=== PATIENT | male | born 1980 | race African-American/Black ===

== ENCOUNTER 2017-04-07 10:23 | Emergency (ER) | payer SELFPAY ==
[~2017-04-07] VITALS: Ht 182.9 cm; Wt 115.0 kg
[~2017-04-07 10:23] MED LIST: AMOXICILLIN500 MG OR; BACTRIM DS1 TAB PO; BENADRYL 50MG C50 MG OR; BENTYL20 MG OR; CEPHALEXIN500 MG PO; LISINOP/HCTZ1 TAB PO; LORTAB 5-325 MG1 TAB PO; NAPROSYN500 MG PO; NO MEDS; PROMETHAZINE25 M1 RE
[2017-04-07 10:43] VITALS: BP 166/99
[2017-04-07 12:20] LABS: HEMATOCRIT 47.8 % (39.0-50.0); HEMOGLOBIN 15.8 g/dl (14.0-18.0); IMMATURE GRANULOCYTES 0.4 % (0.0-1.0); MEAN CELL VOLUME 91.6 fL CALC (80.0-100.0); MEAN CORPUSCULAR HGB 30.3 pG CALC (26.0-32.0); MEAN CORPUSCULAR HGB CONC 33.1 g/L CALC (32.0-36.0); NEUT# 8.17 thou/uL (1.82-7.42); RED BLOOD COUNT 5.22 mill/uL (4.70-6.10); RED CELL DISTRI WIDTH 14.6 % (11.5-15.5)
[2017-04-07 12:26] LABS: ALBUMIN 4.4 g/dL (3.2-5.0); ALKALINE PHOSPHATASE 108 u/l (38-126); ANION GAP 15 (6-22 (CALC)); BUN 14 mg/dL (9-20); BUN/CREATININE RATIO 19 (12-20 (CALC)); CARBON DIOXIDE 28 mmol/l (22-30); CHLORIDE 104 mmol/l (95-108); CREATININE 0.8 mg/dL (0.7-1.3); GFR > 60 ML/MIN (>=60 (CALC)); GFR FOR AFR.AMER. > 60 ML/MIN (>=60 (CALC)); GLUCOSE 89 mg/dL (75-110); POTASSIUM 3.8 mmol/l (3.5-5.1); SGOT/AST 20 u/l (17-59); SGPT/ALT 37 u/l (21-72); SODIUM 144 mmol/l (137-146); TOTAL PROTEIN 7.8 g/dL (6.3-8.2)
[2017-04-07] MEDS ORDERED: LORTAB 5-325 MG1 TAB PO (13:34)
[2017-04-07] MEDS ORDERED: BACTRIM DS1 TAB PO (13:34)
[2017-04-08] MEDS ORDERED: BACTRIM DS1 TAB PO (12:36)
== END 2017-04-07 13:59 | disposition home or self-care (01) | DRG 603 ==
LOC: ED 10:23
PROVIDERS: Emergency Medicine
PROC: 0H94XZZ Drainage of Neck Skin, External Approach (ICD-10-PCS; principal; 2017-04-07)
DX: L02.11 Cutaneous abscess of neck (principal)
CPT/HCPCS: Q9967

== ENCOUNTER 2017-04-08 11:38 | Emergency (ER) | payer SELFPAY ==
[~2017-04-08] VITALS: Ht 182.9 cm; Wt 125.0 kg
[2017-04-08] MEDS ORDERED: BACTRIM DS1 TAB PO (12:36)
[2017-04-08 12:50] VITALS: BP 130/88
== END 2017-04-08 12:50 | disposition home or self-care (01) | DRG 603 ==
LOC: ED 11:38
DX: L02.11 Cutaneous abscess of neck (principal); I10 Essential (primary) hypertension; F17.290 Nicotine dependence, other tobacco product, uncomplicated

== ENCOUNTER 2017-04-10 11:46 | Emergency (ER) | payer SELFPAY ==
[~2017-04-10] VITALS: Ht 182.9 cm; Wt 127.0 kg
[2017-04-10 12:41] VITALS: BP 142/81
== END 2017-04-10 12:43 | disposition home or self-care (01) | DRG 951 ==
LOC: ED 11:46
DX: Z48.01 Encounter for change or removal of surgical wound dressing (principal)

== ENCOUNTER 2017-04-13 11:26 | Emergency (ER) | payer SELFPAY ==
[~2017-04-13] VITALS: Ht 182.9 cm; Wt 100.0 kg
[2017-04-13 12:22] VITALS: BP 138/77
== END 2017-04-13 12:25 | disposition home or self-care (01) | DRG 951 ==
LOC: ED 11:26
DX: Z48.01 Encounter for change or removal of surgical wound dressing (principal)

== ENCOUNTER 2017-09-13 19:45 | Emergency (ER) | payer SELFPAY ==
[~2017-09-13] VITALS: Ht 182.9 cm; Wt 128.4 kg
[2017-09-13] MEDS ORDERED: PERCOCET 5/325M1 TAB PO (20:52)
[2017-09-13] MEDS ORDERED: KEFLEX500 MG PO (20:52)
[2017-09-13 21:06] VITALS: BP 138/80
== END 2017-09-13 21:20 | disposition left against medical advice (07) | DRG 603 ==
LOC: ED 19:45
DX: L02.11 Cutaneous abscess of neck (principal); Z91.19 Patient's noncompliance with other medical treatment and regimen

== ENCOUNTER 2017-09-17 09:22 | Emergency (ER) | payer SELFPAY ==
[~2017-09-17] VITALS: Ht 182.9 cm; Wt 120.0 kg
[~2017-09-17 09:22] MED LIST changes: +KEFLEX500 MG PO; +PERCOCET 5/325M1 TAB PO
[2017-09-17 10:30] VITALS: BP 158/80
[2017-09-17] MEDS ORDERED: BACTRIM DS1 TAB PO (10:30)
== END 2017-09-17 10:30 | disposition home or self-care (01) | DRG 603 ==
LOC: ED 09:22
PROC: 0H94XZZ Drainage of Neck Skin, External Approach (ICD-10-PCS; principal; 2017-09-17)
DX: L02.11 Cutaneous abscess of neck (principal)

== ENCOUNTER 2017-09-19 13:49 | Emergency (ER) | payer SELFPAY ==
[~2017-09-19] VITALS: Ht 182.9 cm; Wt 100.0 kg
[2017-09-19] MEDS ORDERED: LISINOPRIL20 MG PO (14:10)
[2017-09-19 14:20] VITALS: BP 177/95
== END 2017-09-19 14:20 | disposition home or self-care (01) | DRG 951 ==
LOC: ED 13:49
DX: Z48.01 Encounter for change or removal of surgical wound dressing (principal); F17.210 Nicotine dependence, cigarettes, uncomplicated; I10 Essential (primary) hypertension

== ENCOUNTER 2017-09-22 23:51 | Emergency (ER) | payer SELFPAY ==
[~2017-09-22] VITALS: Ht 182.9 cm; Wt 128.0 kg
[~2017-09-22 23:51] MED LIST changes: +LISINOPRIL20 MG PO
[2017-09-23] MEDS ORDERED: LORTAB 1010 MG PO (00:30)
[2017-09-23] MEDS ORDERED: BACTRIM DS1 TAB PO (00:30)
[2017-09-23 00:36] VITALS: BP 146/100
== END 2017-09-23 00:41 | disposition home or self-care (01) | DRG 951 ==
LOC: ED 23:51
DX: Z48.01 Encounter for change or removal of surgical wound dressing (principal)

== ENCOUNTER 2017-09-27 14:35 | Emergency (ER) | payer SELFPAY ==
[~2017-09-27] VITALS: Ht 182.9 cm; Wt 128.0 kg
[~2017-09-27 14:35] MED LIST changes: +LORTAB 1010 MG PO
[2017-09-27 15:30] VITALS: BP 134/87
== END 2017-09-27 15:34 | disposition home or self-care (01) | DRG 951 ==
LOC: ED 14:35
DX: Z48.01 Encounter for change or removal of surgical wound dressing (principal); F17.210 Nicotine dependence, cigarettes, uncomplicated; I10 Essential (primary) hypertension; Z91.19 Patient's noncompliance with other medical treatment and regimen

== ENCOUNTER 2017-10-01 23:08 | Emergency (ER) | payer SELFPAY ==
[~2017-10-01] VITALS: Ht 182.9 cm; Wt 128.0 kg
[2017-10-02 00:32] VITALS: BP 140/92
== END 2017-10-02 00:37 | disposition home or self-care (01) | DRG 951 ==
LOC: ED 23:08
DX: Z48.01 Encounter for change or removal of surgical wound dressing (principal)

== ENCOUNTER 2017-11-26 14:49 | Emergency (ER) | payer SELFPAY ==
[~2017-11-26] VITALS: Ht 182.9 cm; Wt 100.0 kg
[2017-11-26] MEDS ORDERED: BACTRIM DS1 TAB PO ×2 (15:12→15:42)
[2017-11-26] MEDS ORDERED: CEPHALEXIN500 M1 PO ×2 (15:12→15:42)
[2017-11-26 15:47] VITALS: BP 139/99
== END 2017-11-26 16:02 | disposition home or self-care (01) | DRG 603 ==
LOC: ED 14:49
PROC: 0H94XZZ Drainage of Neck Skin, External Approach (ICD-10-PCS; principal; 2017-11-26)
DX: L02.11 Cutaneous abscess of neck (principal); M54.2 Cervicalgia

== ENCOUNTER 2017-11-28 18:40 | Emergency (ER) | payer SELFPAY ==
[~2017-11-28] VITALS: Ht 182.9 cm; Wt 127.4 kg
[~2017-11-28 18:40] MED LIST changes: +CEPHALEXIN500 M1 PO
[2017-11-28] MEDS ORDERED: TRAMADOL HCL50 MG PO (19:12)
[2017-11-28] MEDS ORDERED: LISINOPRIL10 MG PO (19:12)
[2017-11-28 19:20] VITALS: BP 143/97
== END 2017-11-28 19:20 | disposition home or self-care (01) | DRG 951 ==
LOC: ED 18:40
DX: Z48.01 Encounter for change or removal of surgical wound dressing (principal)

== ENCOUNTER 2017-12-01 11:12 | Observation (INO) | payer SELFPAY ==
[~2017-12-01] VITALS: Ht 185.4 cm; Wt 128.6 kg
[~2017-12-01 11:12] MED LIST changes: +LISINOPRIL10 MG PO; +TRAMADOL HCL50 MG PO
--- NOTE | 2017-12-01 11:24 | NUR ---
PT TO ROOM FOR EXAM
[2017-12-01 12:17] LABS: HEMATOCRIT 51.1 % (39.0-50.0); HEMOGLOBIN 16.5 g/dl (14.0-18.0); IMMATURE GRANULOCYTES 0.4 % (0.0-1.0); MEAN CELL VOLUME 91.7 fL CALC (80.0-100.0); MEAN CORPUSCULAR HGB 29.6 pG CALC (26.0-32.0); MEAN CORPUSCULAR HGB CONC 32.3 g/L CALC (32.0-36.0); NEUT# 6.9 thou/uL (1.82-7.42); RED BLOOD COUNT 5.57 mill/uL (4.70-6.10)
[2017-12-01 12:28] LABS: ALBUMIN 4.4 g/dL (3.2-5.0); ALKALINE PHOSPHATASE 118 u/l (38-126); ANION GAP 14 (6-22 (CALC)); BILIRUBIN, TOTAL 0.5 mg/dL (0.0-1.4); BUN 12 mg/dL (9-20); BUN/CREATININE RATIO 14 (12-20 (CALC)); CARBON DIOXIDE 25 mmol/l (22-30); CHLORIDE 105 mmol/l (95-108); CREATININE 0.9 mg/dL (0.7-1.3); GFR > 60 ML/MIN (>=60 (CALC)); GFR FOR AFR.AMER. > 60 ML/MIN (>=60 (CALC)); POTASSIUM 4.1 mmol/l (3.5-5.1); SGOT/AST 28 u/l (17-59); SGPT/ALT 41 u/l (21-72); SODIUM 141 mmol/l (137-146); TOTAL PROTEIN 8.6 g/dL (6.3-8.2)
--- NOTE | 2017-12-01 14:45 | NUR ---
PT WITH TENDERNESS TO BACK OF NECK WHERE ABSCESS IS LOCATED. IV ESTABLISHED, BLOOD DRAWN, IV ABX GIVEN ORDERED. PT AWARE OF POSSIBLE ADMISSION.
--- NOTE | 2017-12-01 15:00 | NUR ---
PT ARRIVED TO FLOOR VIA WHEEL CHAIR ACCOMPANIED BY ROLFRN;PT AMBULATED WITH A STEADY GAIT TO STANDING SCALE AND BEDSIDE;WT AND VS OBTAINED BY DANA IPNEDA;PT ORIENTED TO ROOM AND CALL LIGHT SYSTEM,VERBALIZES UNDERSTANDING;ASSESSMENT COMPLETED;PT REPORTS HAVING NECK ABSCESS I&D SEVERAL TIMES,PT ALSO REPORTS THAT HE WENT TO 'S OFFICE AND WAS UNABLE TO HAVE AN I&D ON Thursday11/26/17;RESPIRATIONS EVEN AND UNLABORED ON RA,DIMINISHED LUNG SOUNDS NOTED;ABDOMEN DISTENDED/SOFT ON PALPATION AND ACTIVE IN ALL 4 QUADRANTS;WEAK PEDAL PULSES;PHOTOGRAPH OF NECK ABSCESS OBTAINED AND PLACED IN CHART,SITE COVERED WITH 4X4 GUAZE AND TEGADERM DRESSING;#22G TO RIGHT HAND FLUSHED AND PATENT,SITE APPEARS HEALTHY;PT DENIES ANY CURRENT PAIN OR DISCOMFORTS,PAIN SCALE AND REPORTING EDUCATED;PT ENCOURAGED TO CALL FOR ASSISTANCE IF NEEDED;CALL LIGHT IN REACH;WILL CONTINUE TO MONITOR
--- NOTE | 2017-12-01 15:06 | NUR ---
PT TAKEN TO ROOM 273 WITHOUT INCIDENT, REPORT WAS TO KARMEN.
[2017-12-01 15:22] VITALS: BP 158/71
--- NOTE | 2017-12-01 16:44 | NUR ---
S: HARSH CRAIG is a 37 M who presents with neck abscess. He has a history of HTN and recurrent neck abscess. All medications in patient's chart were reviewed. O: VS: BP 158/71, P 89, RR 23, T 98.3 W 128.6 kg, HT185.42 cm, Scr=0.9, CrCl= 159.5ml/min A: Blood culture is pending. P: Patient is on cefepime 2 gm IV q12h . Pt received vancomycin 1gm IV x1in ED. Vancomycin ordered for pharmacy to dose. Start Vancomycin 1,500 mg IV Q8H. Vancomycin trough is drawn before the 4th dose on 12/02/2017 @1130. Vancomycin goal trough is between 10-15 mcg/ml. Pharmacy will follow and or advise on antibiotics use as needed.
[2017-12-01 19:00] VITALS: BP 153/97
--- NOTE | 2017-12-01 19:42 | NUR ---
PATIENT RESTING IN BED AT THIS TIME. AWAKE ALERT AND ORIENTEDX3. IV SITE TO RIGHT HAND INTACT AND APPEARS HEALTHY AT THIS TIME. DRESSING TO POST NECK INTACT. C/O NECK PAIN AND MEDICATED WITH LORTAB 10/325MG PO FOR 8/10 ON PAIN SCALE. SAFETY PRECAUTIONS REINFORCED. CALL LIGHT IN REACH. WILL CONT TO MONITOR.
--- NOTE | 2017-12-01 21:18 | NUR ---
RESTING IN BED-MEDICATED WITH TRAZADONE 50 MG PO. ASSISTED PATIENT TO BR TO VOID AND THEN BACK TO BED. NO COMPLAINTS. SAFETY PRECAUTIONS REINFORCED.CALL LIGHT IN REACH. WILL CONT TO MONITOR.
[2017-12-02] VITALS (11 sets, daily range): BP systolic 129–151; BP diastolic 58–90
--- NOTE | 2017-12-02 00:25 | NUR ---
PATIENT RESTING IN BED-C/O POST NECK PAIN-03/31 ON PAINSCALE. MEDICATED WITH LORTAB 10/325MG PO WITH SIP OF WATER. PATIENT NPO FOR PROCEDURE IN AM-VERBALIZES UNDERSTANDING. CALL LIGHT IN REACH. WILL CONT TO MONITOR.
--- NOTE | 2017-12-02 01:46 | NUR ---
PATIENT APPEARS SLEEPING AT THIS TIME WITH EYES CLOSED. CALL LIGHT IN REACH. WILL CONT TO MONITOR.
--- NOTE | 2017-12-02 04:37 | NUR ---
PATIENT RESTING IN BED APPEARS SLEEPING WITH VANCO INFUSING ORDERED. PATIENT REMAINS NPO FOR PROCEDURE THIS AM. CALL LIGHT IN REACH. WILL CONT TO MONITOR.
[2017-12-02 05:24] LABS: HEMATOCRIT 50.4 % (39.0-50.0); HEMOGLOBIN 16.2 g/dl (14.0-18.0); IMMATURE GRANULOCYTES 0.3 % (0.0-1.0); MEAN CELL VOLUME 91.8 fL CALC (80.0-100.0); MEAN CORPUSCULAR HGB 29.5 pG CALC (26.0-32.0); MEAN CORPUSCULAR HGB CONC 32.1 g/L CALC (32.0-36.0); NEUT# 4.88 thou/uL (1.82-7.42); RED BLOOD COUNT 5.49 mill/uL (4.70-6.10); RED CELL DISTRI WIDTH 13.8 % (11.5-15.5)
--- NOTE | 2017-12-02 07:00 | NUR ---
REPORT RECEIVED FROM ÓSCAR POLLACK;PT RESTING IN SEMI FOWLERS POSITION;INTRODUCED SELF TO PT AND POC DISCUSSED;RESPIRATIONS EVEN AND UNLABORED ON RA;INSTRUCTED PT ON NPO DIET STATUS,VERBALIZES UNDERSTANDING;ENCOURAGED PT TO EXPRESS NEEDS AND CONCERNS;CALL LIGHT IN REACH;WILL CONTINUE TO MONITOR
--- NOTE | 2017-12-02 08:20 | NUR ---
PT APPEARS TO BE SLEEPING IN SUPINE POSITION,WAKES TO VERBAL STIMULI;VS OBTAINED AND ASSESSMENT COMPLETED;PT DENIES ANY CURRENT PAIN,PAIN SCALE AND REPORTING RE-EDUCATED;RESPIRATIONS EVEN AND UNLABORED ON RA,DIMINISHED LUNG SOUNDS;ABDOMEN DISTENDED/SOFT ON PALPATION AND ACTIVE IN ALL 4 QUADRANTS;#22G TO RIGHT HAND FLUSHED AND PATENT,SITE APPEARS HEALTHY;NECK ABSCESS APPEARS CDI WITH DRESSING IN PLACE;NPO DIET REINFORCED AND PT VERBALIZES UNDERSTANDING;ENCOURAGED TO CALL FOR ASSISTANCE IF NEEDED;CALL LIGHT IN REACH;WILL CONTINUE TO MONITOR
--- NOTE | 2017-12-02 11:40 | NUR ---
PT REPORTS NECK PAIN RATING 10/10 ON THE PAIN SCALE AND REQUESTS PAIN MEDICATION;PT MEDICATED WITH A ONE TIME ORDER OF MORHPHINE 2MG IVP;RESPIRATIONS EVEN AND UNLABORED ON RA;IV SITE PATENT;ENCOURAGED PT TO CALL FOR ASSISTANCE IF NEEDED;CALL LIGHT IN REACH;WILL CONTINUE TO MONITOR
[2017-12-02 11:54] LABS: URINE BILIRUBIN - DIPSTICK NEGATIVE (NEGATIVE); URINE BLOOD DIPSTICK NEGATIVE (NEGATIVE); URINE COLOR YELLOW; URINE GLUCOSE - DIPSTICK NEGATIVE (NEGATIVE); URINE KETONE NEGATIVE (NEGATIVE); URINE LEUK ESTERASE NEGATIVE (Negative); URINE NITRITE - DIPSTICK NEGATIVE (Negative); URINE PROTEIN - DIPSTICK NEGATIVE (NEG-TRACE); URINE SPECIFIC GRAVITY 1.015; URINE UROBILINOGEN - DIPSTICK 0.2 E.U./dL (0.2)
[2017-12-02 11:56] LABS: URINE CLARITY CLEAR
--- NOTE | 2017-12-02 13:23 | NUR ---
Vancomycin single level analysis: Current dose being given: 1500 mg Current dosing interval: 8 hrs Current infusion time (hrs): 2 Trough level obtained: 12 mcg/ml Timing of trough - Number of hours before next dose: 0.08 Hrs Recommendations: CONTINUE Vancomycin 1500 mg q 8 hrs. Infuse over 2 hrs NEXT TROUGH WILL BE 12/04/17 @8218
--- NOTE | 2017-12-02 16:00 | NUR ---
PT RESTING AT BEDSIDE COMPLAINING OF IV SITE DISCOMFORT TO RIGHT HAND AND REQUESTING A NEW SITE,IV SITE REMOVED WITH CATHETER INTACT;NEW SITE TO BE STARTED BUT ALEX ORELLANA STATED HE WOULD DO IT IN OR;PT LEFT FOR OR AT THIS TIME IN STABLE CONDITION
--- NOTE | 2017-12-02 18:30 | NUR ---
PT ARRIVED BACK TO FLOOR IN STABLE CONDITION ACCOMPANIED BY OR STAFF,PT SELF TRANSFERRED TO BED;PT COMPLAINS OF NECK PAIN AND IS TO BE MEDICATED WITH LORTAB 1 COMBO FOR PAIN;IV SITE REMAINS PATENT TO #20G TO RAC WITH LR RUNNING @ 100ML/HR;ICE CHIPS PROVIDED;ENCOURAGED TO CALL FOR ASSISTANCE IF NEEDED;CALL LIGHT IN REACH;WILL CONTINUE TO MONITOR
--- NOTE | 2017-12-02 21:04 | NUR ---
PT IN SEMIFOWLERS POSITION A/O X3, RESPIRATIONS EVEN AND UNLABORED ON RA. DRESSING IN PLACE TO POSTERIOR NECK CDI, POST OP I&D 12/02. C/O PAIN 03/01, MEDICATED WITH MOTRIN 800MG PER AUG. VANCOMYCIN INFUSING TO RFA WITH NO COMPLICATIONS. CLEAR LIQUIDS PROVIDED AND TOLERATING WELL, WILL ADVANCE DIET TOLERATED. CALL LIGHT IN REACH, WILL CONTINUE TOMONITOR.
--- NOTE | 2017-12-02 22:41 | NUR ---
LORTAB PO PROVIDED PER MAR FOR C/O NECK PAIN 03/31, FULL LIQUID DIET PROVIDED TOLERATING WELL. CALL LIGHT IN REACH.
[2017-12-03 00:25] VITALS: BP 147/76
--- NOTE | 2017-12-03 02:47 | NUR ---
RESTING ON RIGHT SIDE, WAKES EASILY, DENIES NEED FOR PAIN MEDICATION AT THIS TIME. CALL LIGHT IN REACH.
[2017-12-03 04:34] VITALS: BP 152/85
--- NOTE | 2017-12-03 04:58 | NUR ---
LORTAB 10MG PO PROVIDED FOR C/O NECK PAIN.
[2017-12-03 05:04] LABS: HEMATOCRIT 48.9 % (39.0-50.0); HEMOGLOBIN 15.6 g/dl (14.0-18.0); IMMATURE GRANULOCYTES 0.4 % (0.0-1.0); MEAN CELL VOLUME 92.3 fL CALC (80.0-100.0); MEAN CORPUSCULAR HGB 29.4 pG CALC (26.0-32.0); MEAN CORPUSCULAR HGB CONC 31.9 g/L CALC (32.0-36.0); NEUT# 6.96 thou/uL (1.82-7.42); RED BLOOD COUNT 5.3 mill/uL (4.70-6.10); RED CELL DISTRI WIDTH 13.8 % (11.5-15.5)
[2017-12-03 08:45] VITALS: BP 154/79
--- NOTE | 2017-12-03 08:45 | NUR ---
ASSESSMENT IS COMPLETED: IV SITE IS FREE FROM REDNESS OR EDEMA.. HR IS REG, PULSES ARE STRONG X4, ABD IS SOFT WITH ACTIVE BS,. BACK OF THE NECK HAS A DRESSING CDI. SOME SWELLING NOTED ON LEFT SIDE OF THE NECK. SCD'S IN PLACE. CONTINUE TO OSBERVE AND MONITOR.
[2017-12-03 10:08] LABS: CREATININE 0.7 mg/dL (0.7-1.3)
--- NOTE | 2017-12-03 12:15 | NUR ---
PT IS RELAXING IN BED WITH NO DISTRESS NOTED. IV SITE IS FREE FROM REDNESS OR EDEMA. DRESSING IS CDI. CONTINUE TO OSBERVE AND MONITOR.
[2017-12-03 15:32] VITALS: BP 137/93
--- NOTE | 2017-12-03 16:15 | NUR ---
PT RETURNED FROM HAVING CT COMPLTED AT 1440 GAVE PAIN MEDICATION AT THAT TIME. CONITNUE TO RYLEY AND MONITOR.
--- NOTE | 2017-12-03 18:55 | NUR ---
CALLED RE: PT AND DRESSING CHANGE WILL PLACE ORDERS FOR WET TO DRY AND PACKED WITH JUAN M WET WITH SALINE.
[2017-12-03 19:23] VITALS: BP 160/108
[2017-12-03 22:08] VITALS: BP 139/78
--- NOTE | 2017-12-03 22:47 | NUR ---
ATTEMPTED TO DO DRESSING CHANGE, REMOVED ABD PAD AND 4X4'S FROM POSTERIOR NECK, TOLERATED POORLY. PT C/O PAIN WHEN REMOVING TAPE, AND REFUSES TO HAVE PACKING REMOVED. STATES HE WANTS THE DOCOTOR TO REMOVED THE PACKING. PT REASURED THAT DOCTOR UMANA HAS ORDERED FOR NURSING STAFF TO CHANGE DRESSING, AND WILL BE GENTLE. PT REFUSES TO HAVE PACKING REMOVED, PACKING MOISTED WITH NS, AND CORED WITH 4X4'S AND SECURED WITH TAPE.
--- NOTE | 2017-12-04 01:13 | NUR ---
RESTING WITH EYE CLOSED RESPIRATIONS EVEN AND UNLABORED ON RA. CALL LIGHT IN REACH.
--- NOTE | 2017-12-04 04:02 | NUR ---
RESTING WITH EYES CLOSED, RESPONDS EASILY TO VERBAL COMMAND. VANCOMYCIN SPIKED AND INFUSING WITH NO COMPLICATIONS. C/O POSTERIOR NECK PAIN 10/10, LORTAB PROVIDED PER AUG.
[2017-12-04 04:21] VITALS: BP 134/86
--- NOTE | 2017-12-04 06:00 | NUR ---
PT C/O OF FEELING "FUNNY", VANCOMYCIN INFUSING TO RAC WITH NO COMPLICATIONS. VITALS: 97.5, 58, 18, 125/59, O2 SAT 97%, GATORADE AND CRAKER PROVIDED PER HIS REQUEST. CALL LIGHT IN REACH.
[2017-12-04 06:02] VITALS: BP 125/59
[2017-12-04 06:03] LABS: HEMATOCRIT 47.2 % (39.0-50.0); HEMOGLOBIN 15.2 g/dl (14.0-18.0); IMMATURE GRANULOCYTES 0.6 % (0.0-1.0); MEAN CELL VOLUME 91.8 fL CALC (80.0-100.0); MEAN CORPUSCULAR HGB 29.6 pG CALC (26.0-32.0); MEAN CORPUSCULAR HGB CONC 32.2 g/L CALC (32.0-36.0); NEUT# 5.44 thou/uL (1.82-7.42); RED BLOOD COUNT 5.14 mill/uL (4.70-6.10); RED CELL DISTRI WIDTH 13.6 % (11.5-15.5)
[2017-12-04 08:03] VITALS: BP 146/84
--- NOTE | 2017-12-04 08:14 | NUR ---
PT SITTING ON SIDE OF BED, NO SIGNS OF DISTRESS NOTED. RESP EVEN AND UNLABORED. PT ALERT AND ORIENTED X3, DISCUSSED POC, PT REQUIRES REINFORCMENT, INFORMED PT THAT RADIO INTERFERENCE SUPERVISOR SPOKE WITH AND INFORMED MD THAT PT HAS BEEN REFUSING DRESSING CHANGES AND MD REQUESTS THAT DRESSING BE CHANGED DAILY. DISCUSSED MEDICATION PRIOR TO DRESSING CHANGE. PT STATES HE WOULD LIKE TO HAVE A BM AND THEN SHOWER BEFORE DRESSING CHANGE. DRESSING CDI AT THIS TIME, ASSESSMENT COMPLETED. CALL LIGHT IN REACH,CONTINUE TO MONITOR.
--- NOTE | 2017-12-04 09:31 | NUR ---
PT HAS HAD A SHOWER, ENCOURAGED DRESSING CHANGE PT STATES NOT AT THIS TIME. WILL CONTINUE TO MONITOR AND ENCOURAGE DRESSING CHANGE UNTIL COMPLETED. CALL LIGHT IN REACH,CONTINUE TO MONITOR.
--- NOTE | 2017-12-04 15:09 | NUR ---
VANCOMYCIN SINGLE LEVEL ANALYSIS TROUGH=15 CONTINUE VANCO 1500MG Q8H NEXT TROUGH WILL BE 12/07/17 @6586
[2017-12-04 15:17] VITALS: BP 151/94
--- NOTE | 2017-12-04 15:20 | NUR ---
Dressing removed from back of neck. Pt did not tolerate dressing change well. C/O pain through dressing change which took over 35 minutes to remove packing. Dressing removed, slowly packing was removed from incision site. Wound cleansed with normal saline. Wound edges clean. Dry packing guaze gently packed into wound bed. Dry dressing applied, secured with tape. No resp. distress noted. Call light within reach.
--- NOTE | 2017-12-04 15:57 | NUR ---
PT SITTING ON COUCH IN ROOM, NO SIGNS OF DISTRESS NOTED, RESP EVEN AND UNLABORED. IV INFUSION COMPLETED PT REQUESTING PAIN MEDICATION. STATES NOTHING ALLEVIATES THE PAIN. PT SMILING AND STATED HE THOUGHT HE WAS GETTING A PERCOCET INSTEAD OF LORTAB. PT INFORMED OF PAIN MEDICATION ORDERED AND THAT THE MORPHINE WILL ONLY BE GIVEN DURING DRESSING CHANGES. VERBALIZED UNDERSTANDING. DRESSING CDI, CALL LIGHT IN REACH,CONTINUE TO MONITOR.
--- NOTE | 2017-12-04 17:18 | NUR ---
PT AMBULATING IN HALLWAY, NO SIGNS OF DISTRESS NOTED, RESP EVEN AND UNLABORED. CONTINUE TO MONITOR.
[2017-12-04 19:35] VITALS: BP 151/96
--- NOTE | 2017-12-04 20:00 | NUR ---
BESIDE REPORT GIVEN. RESP E/U, SKIN W/D, NO NOTED SIGNS OF DISTRESS. DISCUSSED WITH MR CRAIG THE NEED FOR DRESSING CHANGE. PT STATES "I THINK I WILL WAIT FOR THE NEXT SHIFT". I EXPLAINED TO HIM THE NEED FOR DRESSING CHANGES TO BE COMPLETED TWICE DAILY. MR. CRAIG WAS ALSO INFORMED THAT I WOULD COME IN BETWEEN [phone] TO SEE IF HE WOULD ALLOW ME TO CHANGE THE DRESSING, OPPOSED TO HAVING IT ONCE DAILY, DUE TO REINFECTION OR CAUSING MORE ISSUES. PT VERBALIZED UNDERSTANDING.
[2017-12-05] VITALS (11 sets, daily range): BP systolic 137–176; BP diastolic 67–98
--- NOTE | 2017-12-05 | NUR ---
PT RESTING IN BED WITH EYES CLOSED. NO NOTED SIGNS OF DISTRESS. IV SITE DRY AND INTACT. CALL LIGHT WITHIN REACH.
--- NOTE | 2017-12-05 04:55 | NUR ---
PT RESTING IN BED WITH EYES CLOSED, RESP EQUAL AND UNLABORED. IV SITE INTACT, CLEAN AND DRY WITH ANTIBIOTICS INFUSING. NO NOTED SIGNS OF DISTRESS. CALL DEVICE WITHIN REACH.
--- NOTE | 2017-12-05 05:35 | NUR ---
MR GRAMAJOUGH UP SITTING AT THE BEDSIDE. NO NOTED SIGNS OF DISTRESS. AT THIS TIME I WENT BACK IN TO RE-EDUCATE THE NEED FOR HIS DRESSING CHANGE AND TO SEE IF HE WOULD BE WILLING TO ALLOW ME TO DO SO AT THIS TIME. PT REFUSED, STATING "I THINK I'M JUST GOING TO WAIT FOR THE NEXT SHIFT." WILL INFORM THE NURSE FOR DAYSHIFT, AND DISCUSS THIS AT THE BEDSIDE DURING SHIFT REPORT.
[2017-12-05 05:40] LABS: HEMATOCRIT 47.1 % (39.0-50.0); IMMATURE GRANULOCYTES 0.4 % (0.0-1.0); MEAN CORPUSCULAR HGB 29.3 pG CALC (26.0-32.0); MEAN CORPUSCULAR HGB CONC 31.8 g/L CALC (32.0-36.0); NEUT# 5.01 thou/uL (1.82-7.42); RED BLOOD COUNT 5.12 mill/uL (4.70-6.10); RED CELL DISTRI WIDTH 13.5 % (11.5-15.5)
[2017-12-05 06:03] LABS: ANION GAP 14 (6-22 (CALC)); BUN 7 mg/dL (9-20); BUN/CREATININE RATIO 10 (12-20 (CALC)); CARBON DIOXIDE 26 mmol/l (22-30); CHLORIDE 104 mmol/l (95-108); CREATININE 0.7 mg/dL (0.7-1.3); GFR > 60 ML/MIN (>=60 (CALC)); GFR FOR AFR.AMER. > 60 ML/MIN (>=60 (CALC)); POTASSIUM 4.5 mmol/l (3.5-5.1); SODIUM 140 mmol/l (137-146)
--- NOTE | 2017-12-05 09:30 | NUR ---
PT SITTING ON COUCH IN ROOM, NO SIGNS OF DISTRESS NOTED,RESP EVEN AND UNLABORED. PT ALERT AND ORIENTED X3, CONTINUES TO HAVE PAIN TO POSTERIOR NECK, VERY TENDER TO TOUCH. DISCUSSED POC, PT IN AGREEMENT, DRESSING CDI. CALL LIGHT IN REACH,CONTINUE TO MONITOR.
--- NOTE | 2017-12-05 09:59 | NUR ---
PT READY TO TAKE A SHOWER, IV SITE SECURED. INFORMED PT OF NPO STATUS AND WILL SEE PT WHEN HE ARRIVES. PT VERBALIZED UNDERSTANDING. ALL FLUIDS REMOVED FROM PT ROOM.
--- NOTE | 2017-12-05 12:51 | NUR ---
PT LYING IN BED VANCO INFUSION INITIATED. DISCUSSED ORDERS FOR CONSENT FOR INCISION AND DRAINAGE OF POSTERIOR NECK. PT IN AGREEMENT, WAS SEEN THIS AM BY TO DISCUSS PROCEDURE AND ITS RISKS. PT SIGNED CONSENT FOR PROCEDURE. VOICES NO NEEDS OR COMPLAINTS AT THIS TIME, PT INFORMED PROCEDURE SET FOR 16:30. CALL LIGHT IN REACH,CONTINUE TO MONITOR.
--- NOTE | 2017-12-05 15:56 | NUR ---
PT TAKEN DOWN TO THE OR FOR SURGERY, PT STABLE. TAKEN VIA STRETCHER ACCOMPANIED BY OR NURSE. CONTINUE TO MONITOR.
--- NOTE | 2017-12-05 18:49 | NUR ---
PT ARRIVED ON FLOOR FROM SURGERY VIA STRETCHER WITH OR NURSES. PT AMBULATED TO BED WITH ASSIST. RESP EVEN AND UNLABORED. PT ALERT AND ORIENTED. LUNGS CLEAR BILAT. ABD SOFT, ACTIVE BOWEL SOUNDS. SCD'S ON. PEDAL PULSES PALPATED BILAT. IV LH PATENT, NO REDNESS OR EDEMA NOTED. DRESSING POSTERIOR NECK CDI. PT HAD URINATED X1 AFTER SURGERY. VITAL SIGNS OBTAINED BY RIVETING MACHINE OPERATOR TAPE CONTROL. SAFETY PRECAUTIONS REINFORCED. FREQUENT ROUNDS MADE. CALL LIGHT WITHIN REACH.
--- NOTE | 2017-12-06 00:20 | NUR ---
PT RESTING IN BED WATCHING TV. PT DENIES PAIN. RESP EVEN AND UNLABORED. IV PATENT; NO REDNESS OR EDEMA NOTED. DRESSING CDI. CALL LIGHT WITHIN REACH.
[2017-12-06 04:00] VITALS: BP 136/88
--- NOTE | 2017-12-06 04:11 | NUR ---
PT RESTING IN BED WATCHING TV. DRESSING CDI. IV PATENT; NO REDNESS OR EDEMA NOTED. RESP EVEN AND UNLABORED. CALL LIGHT WITHIN REACH.
--- NOTE | 2017-12-06 07:32 | NUR ---
PT RESTING IN BED, DISCUSSED POC AND DRESSING CHANGES BID, PT CONTINUES TO STATE THAT DRESSING CHANGES ARE ONCE A DAY, INFORMED PT THAT ORDERS WERE WRITTEN BY MD AND CONFIRMED FOR DRESSING CHANGES BID. CALL LIGHT IN REACH,CONTINUE TO MONITOR.
[2017-12-06 08:53] VITALS: BP 151/87
--- NOTE | 2017-12-06 13:11 | NUR ---
ENTERED ROOM WITH RN AND INFORMED PT OF DRESSING CHANGE, PT REQUIRES REINFORCMENT AND TEACHING REGARDING DRESSING CHANGES. PT IS NOT COOPERATIVE AND WOULD PREFER NOT TO HAVE DRESSING CHANGES, INFORMED PT OF MD ORDERS AND THE RISKS OF INFECTION SPREADING TO SPINAL COLUMN OR BRAIN. MEDICATED WITH 0.5 MG OF IV DILAUDID. PT SAT UP IN CHAIR AT BEDSIDE AND BEGAN TO REMOVE THE DRESSING. PT CONSTANTLY PULLED AWAY AND C/O PAIN STATING THAT THE DILAUDID DID NOT HELP. HOME VISITOR NOTIFIED AND AN ADDITIONAL DOSE OF 0.5 IV GIVEN @ 1346, AND ORDERS FOR DILAUDID INCREASED TO 1MG, REMOVAL OF DRESSING CONTINUED. TELEPHONE MAINTAINER CAME TO ASSIST WITH THE REMOVAL OF THE FABRIC TAPE. NS USED TO SATURATE DRESSING AND PT STILL REQUESTING STAFF TO "TAKE IT EASY, HE HAS ALL DAY." AFTER MEDICATING PT HE CONTINUES TO C/O PAIN AND PULL AWAY AND MAKING THREATS TO STAFF,"I'M JUST GOING TO START THROWING ELBOWS". PT CONSTANTLY EDUCATED ON THE IMPORTANCE OF DRESSING CHANGE. PT STILL C/O PAIN, HOME VISITOR NOTIFIED AND LORTAB PO GIVEN AT 1531. AFTER PACKING WAS REMOVED AND INTACT, IRRIGATED WOUND WITH NS, AND BEGAN PACKING WITH STERILE 3" CONFORMING GAUZE BANDAGE PT C/O PAIN AND DID NOT WANT PACKING TO BE DONE. AGAIN EDUCATED PT ON IMPORTANCE OF PACKING IN HIS WOUND. ATTEMPTED TO INSERT PACKING AND PT PULLING AWAY STATED," THAT'S IT JUST CUT OFF THE REST OF WHAT YOU HAVE LEFT AND WRAP IT UP, I'M TIRED OF THIS SHIT." 4X4 STERILE GAUZE APPLIED OVER PACKING AND AND ABD OVER GAUZE THEN SECURED WITH PAPER TAPE REQUESTED BY PT. DRESSING COMPLETED @ 1610. CALL LIGHT IN REACH,CONTINUE TO MONITOR.
--- NOTE | 2017-12-06 18:00 | NUR ---
PT CALLED C/O DRESSING BLEEDING, NOTED AREA TO L AND R SIDE OF NECK DRESSING BLEEDING, AREA CLEANED AND PRESSURE DRESSING APPLIED AND SECURED WITH ABD AND TAPE, PT TOLERATED WELL. INFORMED PT THAT RADIOLOGY CALLED AND REQUESTING PT FOR HIS CT THAT WAS ORDERED IN THE AM, PT REFUSED TO HAVE CT DONE. WILL NOTIFY NURSE NEXT SHIFT TO ASK AT A LATER TIME IN CASE HE HAS A CHANGE OF MIND. CALL LIGHT IN REACH,CONTINUE TO MONITOR.
--- NOTE | 2017-12-06 18:21 | NUR ---
PATIENT REFUSED TO GO TO RADIOLOGY FOR THE CT ON HIS NECK! RADIOLOGY DEPARTMENT WAS NOTIFIED, AND THEY SAID IT WAS FINE. 2017-12-06 RI/CASSANDRA
[2017-12-06 19:05] VITALS: BP 149/91
--- NOTE | 2017-12-06 19:27 | NUR ---
REPORT RECIEVED, PT RESTING IN BED WATCHING TV. RESP EVEN AND UNLABORED. PT DENIES PAIN AT THIS TIME. IV PATENT; NO REDNESS OR EDEMA NOTED. POSTERIOR NECK DRESSING CDI. FREQUENT ROUNDS MADE. CALL LIGHT WITHIN REACH.
--- NOTE | 2017-12-06 23:21 | NUR ---
PT WAS EDUCATED ON IMPORTANCE OF DRESSING CHANGE AT 2150, PT AGREED TO DRESSING CHANGE. PT ASKED THIS MULTIPLE PUNCH PRESS OPERATOR TO COME BACK AT A LATER TIME. PT NOW REFUSING DRESSING CHANGE, PT STATES "MAYBE IN THE MORNING.".
--- NOTE | 2017-12-07 00:16 | NUR ---
PT RESTING IN BED. RESP EVEN AND UNLABORED. NO DISTRESS NOTED. IV PATENT. DRESSING CDI, CALL LIGHT WITHIN REACH.
--- NOTE | 2017-12-07 04:00 | NUR ---
ASSESSMENT UNCHANGED; RESP EVEN AND UNLABORED. DRESSING CDI. IV PATENT; NO REDNESS OR EDEMA NOTED. CALL LIGHT WITHIN REACH.
[2017-12-07 05:05] VITALS: BP 133/88
[2017-12-07 05:19] LABS: HEMATOCRIT 44.7 % (39.0-50.0); HEMOGLOBIN 14.5 g/dl (14.0-18.0); IMMATURE GRANULOCYTES 0.4 % (0.0-1.0); MEAN CORPUSCULAR HGB 29.5 pG CALC (26.0-32.0); MEAN CORPUSCULAR HGB CONC 32.4 g/L CALC (32.0-36.0); NEUT# 4.31 thou/uL (1.82-7.42); RED BLOOD COUNT 4.91 mill/uL (4.70-6.10); RED CELL DISTRI WIDTH 13.5 % (11.5-15.5)
[2017-12-07 05:34] LABS: ANION GAP 10 (6-22 (CALC)); BUN 7 mg/dL (9-20); BUN/CREATININE RATIO 10 (12-20 (CALC)); CARBON DIOXIDE 29 mmol/l (22-30); CHLORIDE 104 mmol/l (95-108); CREATININE 0.7 mg/dL (0.7-1.3); GFR > 60 ML/MIN (>=60 (CALC)); GFR FOR AFR.AMER. > 60 ML/MIN (>=60 (CALC)); POTASSIUM 4.1 mmol/l (3.5-5.1); SODIUM 139 mmol/l (137-146)
[2017-12-07 07:45] VITALS: BP 167/99
--- NOTE | 2017-12-07 07:45 | NUR ---
ASSESSMENT IS COMPLTED: PT HAS BEEN IN THE CHAIR. IV SITE IS FREE FROM REDNESS OR EDEMA. HR IS REG, PULSES ARE STRONG X4, ABD IS SOFT . DRESSING ON NECK IS CDI. INFORMED PT THE PURPOSE OF CHANGING DRESSING. VERBALIZED UNDERSTANDING.
--- NOTE | 2017-12-07 07:48 | NUR ---
PREMEDICATING PT FOR DRESSING CHANGE THENWILL GIVE IV PAIN MEDCIATION.
--- NOTE | 2017-12-07 09:25 | NUR ---
DRESSING REMOVED , PACKING REMOVED WAS BLODDY. PT STATED" JUST TAKE YOUR TIME, SO IT WONT HURT" INSTRUCTED THAT IF WE TAKE TOO MUCH TIME THEN PAIN MEDICATION WILL WEAR OFF. CONTINUED WITH DRESSING CHANGE, USING CLEAN TECHNIQUE, PACKED WITH JUAN M AND WET TO DRY DRESSING SECURED WITH ABD PAD AND PAPER TAPE. PT TOLERATED WELL STATING " IT DOESN'T LOOK TOO BAD" INFORMED THAT IF HE IS ABLE TO BEND HEAD DOWN IT IS EASIER FOR THE DRESSING CHANGE TO GET RID OF THE INFECTION. VERBALIZED UNDERSTANDING.
--- NOTE | 2017-12-07 12:15 | NUR ---
PT IS RELAXING IN BED WITH NO DISTRESS NOTED. IV SITE IS FREE FROM REDNESS OR EDEMA,CONTINUE TO OSBERVE AND MONITOR
[2017-12-07] MEDS ORDERED: LISINOPRIL10 MG PO (13:39)
[2017-12-07] MEDS ORDERED: LORTAB 1010 MG PO (13:39)
[2017-12-07] MEDS ORDERED: LYPHOCIN1 GM IV (13:39)
[2017-12-07] MEDS ORDERED: CEFEPIME2 GM IV (13:39)
--- NOTE | 2017-12-07 13:40 | NUR ---
PT WENT FOR A PICCLINE PLACEMENT. IV ABT WAS STOPPED TEMPORARILY, IV SITE IS FREE FROM REDNESS OR EDEMA, UPON RETURN AT 1440 PT INSISITED ON THE IV SITE BE REMOVED. CHECKED WITH XRAY TO BE SURE IT WAS FREE TO BE USED, GOPI TO USE ABT RESTARTED TO COMPLETE PRIOR TO GOING HOME.
--- NOTE | 2017-12-07 14:44 | NUR ---
Vancomycin single level analysis: Current dose being given: 1500 mg Current dosing interval: 8 hrs Current infusion time (hrs): 2 Single level Trough Data: Trough level obtained: 16 mcg/ml Recommendations: Give Vancomycin 2000 mg q 12 hrs. Infuse over 2 hrs ASKED FOR TWICE DAILY DOSING FOR OUTPATIENT IV, CHECK TROUGH AND SCR BEFORE 4TH DOSE
[2017-12-07 15:52] VITALS: BP 147/98
--- NOTE | 2017-12-07 16:30 | NUR ---
PT HAS BEEN SITTING IN THE CHAIR. NO DISTRESS NOTED. IV SITE IS FREE FROM REDNESS OR EDEMA. CONTINUE TO OSBERVE AND MONITOR.
--- NOTE | 2017-12-07 17:15 | NUR ---
PT RECEIVED DISCHARGE INSTRUCTIONS. IV SITE FLUSHED WITH NS AND HEPARIN. INFORMED PT THE APPT TO COME IN AT 0830 AND THEN TO GO TO NEUROLOGY EPILEPSY PHYSICIAN FOR CHECK IN. VERBALIZED UNDERSTANDING. GAVE SUPPLIES IF WOUND BEGINS TO DRAIN BEFORE THE CHANGE.
--- NOTE | 2017-12-07 17:20 | NUR ---
Discharge instructions given. Patient verbalizes understanding of same. Discharged in stable condition via Wheelchair to Home with family. All belongings sent with pt.
--- NOTE | 2017-12-10 11:18 | NUR ---
S: HARSH CRAIG is a 37 M who presents with ABSCESS OF NECK. He has a history of HTN. All medications in patient's chart were reviewed. O: Current vacomycin trough of 10mcg/ml VS: BP 147/98, P 71, RR 18, T 98.7 W 128.593 kg, HT 185.42cm, Scr= 0.7,CrCl= 118.7 ml/min A: Blood culture from 12/01/17 shows no growth. Wound culture of the neck from 12/02/17 shows no growth. P: Patient is on Vancomycin. Vancomycin ordered for pharmacy to dose. Continue vancomycin 2 g IV Q12H. Vancomycin trough is drawn on 12/12/17 prior to morning dose. Vancomycin goal trough is between 10-15 mcg/ml. Pharmacy will follow and or advise on antibiotics use as needed.
== END 2017-12-07 17:27 | disposition home or self-care (01) | DRG 603 ==
LOC: ED 11:12 → ED-I 14:18 → ED 14:31 → MS2 14:32
PROVIDERS: Nurse Practitioner; Nurse Practitioner Family; ADMIT Internal Medicine; ATTEND Internal Medicine
PROC: 0H94XZZ Drainage of Neck Skin, External Approach (ICD-10-PCS; principal; 2017-12-02)
PROC: 0H94XZZ Drainage of Neck Skin, External Approach (ICD-10-PCS; 2017-12-05)
PROC: 02HV33Z Insertion of Infusion Device into Superior Vena Cava, Percutaneous Approach (ICD-10-PCS; 2017-12-07)
PROC: B518ZZA Fluoroscopy of Superior Vena Cava, Guidance (ICD-10-PCS; 2017-12-07)
DX: L02.11 Cutaneous abscess of neck (principal); I10 Essential (primary) hypertension; F17.210 Nicotine dependence, cigarettes, uncomplicated; F12.90 Cannabis use, unspecified, uncomplicated; Z91.14 Patient's other noncompliance with medication regimen
CPT/HCPCS: C9290; G0378; J0692; J2710; J3370; Q9967

== ENCOUNTER 2018-10-28 15:15 | Emergency (ER) | payer OTHER ==
[~2018-10-28] VITALS: Ht 182.9 cm; Wt 126.0 kg
[~2018-10-28 15:15] MED LIST changes: +CEFEPIME2 GM IV; +LYPHOCIN1 GM IV
[2018-10-28] MEDS ORDERED: FLEXERIL PO (17:16)
[2018-10-28] MEDS ORDERED: TORADOL PO (17:16)
[2018-10-28 17:41] VITALS: BP 135/71
== END 2018-10-28 17:41 | disposition home or self-care (01) | DRG 563 ==
LOC: ED 15:15
DX: S66.911A Strain of unspecified muscle, fascia and tendon at wrist and hand level, right hand, initial encounter (principal); S39.012A Strain of muscle, fascia and tendon of lower back, initial encounter; S80.02XA Contusion of left knee, initial encounter; V49.49XA Driver injured in collision with other motor vehicles in traffic accident, initial encounter; Y92.414 Local residential or business street as the place of occurrence of the external cause